=== PATIENT | male | born 1990 | race Caucasian/White ===

== ENCOUNTER 2020-09-27 18:01 | Emergency (ER) | payer SELFPAY ==
[~2020-09-27] VITALS: Ht 180.3 cm; Wt 113.4 kg
== END 2020-09-27 20:30 | disposition home or self-care (01) ==
LOC: ER 18:25
DX: M25.561 Pain in right knee (principal); S83.91XA Sprain of unspecified site of right knee, initial encounter; W18.30XA Fall on same level, unspecified, initial encounter; Y93.01 Activity, walking, marching and hiking
CPT/HCPCS: 99283